=== PATIENT | female | born 1945 | race Caucasian/White ===

== ENCOUNTER 2017-11-12 08:27 | Day surgery (SDC) | payer MEDICARE ==
[2017-11-10 11:05] VITALS: BMI 21.0
[~2017-11-12 08:27] MED LIST: LACTATED RINGERS 1,000 ML IV SCH; LIDOCAINE 1% 20 ML VIAL (10MG/ML) FOR IV START INTRADERMA PRN
[2017-11-12 09:38] VITALS: RESP 16; TEMP 97
[2017-11-12] MEDS ORDERED: PROPOFOL 10 MG/ML 20 ML VIAL IV ONE (10:39)
--- NOTE | 2017-11-12 10:55 | P.PCN ---
Date of Procedure: 11/12/17 Procedure(s) Performed: BRIEF HISTORY: Patient is a 72-year-old pleasant white female, scheduled for an elective colonoscopy as a part of screening for colon neoplasia. She has family history of colon cancer diagnosed in her father at age 70. PROCEDURE PERFORMED: Colonoscopy. PREOPERATIVE DIAGNOSIS: Screening for colon cancer/family history of colon cancer. IV sedation per Anesthesia. PROCEDURE: After informed consent was obtained, the patient, was brought into the endoscopy unit. IV sedation was administered by Anesthesia under continuous monitoring. Digital rectal examination was normal. Initially the Olympus CF- 160 flexible video colonoscope was then inserted in the rectum, gradually advanced into the cecum without any difficulty. Careful examination was performed as the scope was gradually being withdrawn. Ileocecal valve and the appendiceal orifice were visualized and appeared normal. Prep was excellent. Mucosa of the cecum, ascending colon, transverse colon, descending colon, sigmoid colon, and rectum appeared normal. Scattered sigmoid diverticulosis seen. Retroflexion was performed in the rectum and no lesions were seen. The patient tolerated the procedure well. IMPRESSION: Normal-appearing colon from rectum to cecum with no evidence of colorectal neoplasia. Scattered sigmoid diverticulosis. RECOMMENDATIONS: Findings of this examination were discussed with the patient as well as her family. She was advised to have a repeat screening colonoscopy every 5 years because of the family history of colon cancer..
[2017-11-12 11:24] VITALS: BP 127/84; PULSE 67
== END 2017-11-12 11:34 | disposition home or self-care (01) ==
LOC: ORWHC2ENDO 08:27
PROVIDERS: ATTEND Internal Medicine Gastroenterology
DX: Z12.11 Encounter for screening for malignant neoplasm of colon (principal); K57.30 Diverticulosis of large intestine without perforation or abscess without bleeding; Z80.0 Family history of malignant neoplasm of digestive organs; K21.9 Gastro-esophageal reflux disease without esophagitis; Z79.899 Other long term (current) drug therapy
CPT/HCPCS: J2704; G0105

== ENCOUNTER → 2018-03-29 | Outpatient (CLI) | payer MEDICARE ==
[2018-03-29 14:39] LABS: Basophils % (A) 1 %; Eosinophils # (A) 0.1 k/uL (0-0.7); Eosinophils % (A) 1 %; HGB 13.6 gm/dL (11.4-16.0); Lymphocytes # (A) 1.6 k/uL (1.0-4.8); Lymphocytes % (A) 29 %; MCH 31.7 pg (25.0-35.0); MCHC 32.4 g/dL (31.0-37.0); MCV 97.9 fL (80.0-100.0); Mean Platelet Volume 7.1; Monocytes # (A) 0.3 k/uL (0-1.0); Monocytes % (A) 5 %; Neutrophils # (A) 3.5 k/uL (1.3-7.7); Neutrophils % (A) 63 %; Platelet Count 267 k/uL (150-450); RBC 4.29 m/uL (3.80-5.40); RDW 12.6 % (11.5-15.5); WBC 5.6 k/uL (3.8-10.6)
[2018-03-29 14:51] LABS: Anion Gap 8 mmol/L; Blood Urea Nitrogen 14 mg/dL (7-17); Carbon Dioxide 29 mmol/L (22-30); Chloride 104 mmol/L (98-107); Potassium 4.3 mmol/L (3.5-5.1); Sodium 141 mmol/L (137-145)
== END | disposition home or self-care (01) ==
LOC: LABPAT 13:52
PROVIDERS: ATTEND Obstetrics & Gynecology
DX: Z01.818 Encounter for other preprocedural examination (principal); Z01.812 Encounter for preprocedural laboratory examination; N81.4 Uterovaginal prolapse, unspecified
CPT/HCPCS: 36415; 80051; 82565; 84520; 85025; 87086; 93005

== ENCOUNTER 2018-04-05 05:40 | Day surgery (SDC) | payer MEDICARE ==
[2018-03-29 11:47] VITALS: BMI 21.0
[~2018-04-05 05:40] MED LIST changes: -LACTATED RINGERS 1,000 ML IV SCH; -LIDOCAINE 1% 20 ML VIAL (10MG/ML) FOR IV START INTRADERMA PRN; +ceFAZolin IN SWFI 2 GM/20 ML SYRINGE IVP ONE
[2018-04-05] MEDS ORDERED: HYDROmorphone 0.5 MG/0.5 ML SYRINGE IVP PRN (06:17)
[2018-04-05] MEDS ORDERED: DEXAMETHASONE SOD PHOSPHATE 10 MG/ML 1 ML VIAL IV ONE (06:17)
[2018-04-05] MEDS ORDERED: SCOPOLAMINE 1.5MG/72HR PATCH TRANSDERM ONE (06:17)
[2018-04-05] MEDS ORDERED: LIDOCAINE 1% 20 ML VIAL (10MG/ML) FOR IV START INTRADERMA PRN (06:17)
[2018-04-05] MEDS ORDERED: ONDANSETRON 4 MG/2 ML VIAL IVP ONE (06:17)
[2018-04-05] MEDS: LACTATED RINGERS 1,000 ML IV SCH ×2 (06:36→17:04)
[2018-04-05] MEDS ORDERED: MIDAZOLAM 2 MG/2 ML VIAL IV ONE (06:52)
[2018-04-05] MEDS ORDERED: PROPOFOL 10 MG/ML 20 ML VIAL IV ONE (07:25)
[2018-04-05] MEDS ORDERED: ePHEDrine SULFATE/0.9% NACL/PF 50 MG/5 ML SYRINGE IV ONE (07:25)
[2018-04-05] MEDS ORDERED: LIDOCAINE 1% INJ 10MG/ML (20 ML MDV) ONE (07:25)
[2018-04-05] MEDS ORDERED: MIDAZOLAM 2 MG/2 ML VIAL ONE (07:25)
[2018-04-05] MEDS ORDERED: MORPHINE SULFATE (PF) 0.3 MG/0.3 ML SYR ONE (07:25)
[2018-04-05] MEDS ORDERED: VASOPRESSIN 20 UNIT/ML 1 ML VIAL SQ ONE ×2 (07:45)
[2018-04-05] MEDS ORDERED: LACTATED RINGERS 1,000 ML IV ONE (08:26)
[2018-04-05] MEDS ORDERED: KETOROLAC 30 MG/ML 1 ML VIAL IVP PRN (08:34)
[2018-04-05] MEDS ORDERED: ONDANSETRON 4 MG/2 ML VIAL IVP PRN (08:34)
[2018-04-05] MEDS ORDERED: ZOLPIDEM 5 MG TAB PO PRN (08:34)
[2018-04-05] MEDS ORDERED: METOCLOPRAMIDE 5 MG/ML 2 ML VIAL IVP PRN (08:34)
[2018-04-05] MEDS ORDERED: IBUPROFEN 600 MG TAB PO PRN (08:34)
[2018-04-05] MEDS ORDERED: Acetaminophen-Codeine 300-30mg TAB PO PRN (08:34)
--- NOTE | 2018-04-05 08:34 | P.OP ---
Date of Procedure: 04/05/18 Preoperative Diagnosis: Grade 3 uterine prolapse, grade 3-4 cystocele, symptomatic Postoperative Diagnosis: Same, normal-appearing ovaries bilaterally Procedure(s) Performed: Vaginal hysterectomy, anterior colporrhaphy Anesthesia: spinal Surgeon: Chloe Blankenship [employer] Processor #1: Cassandra Yi Estimated Blood Loss (ml): 50 IV fluids (ml): 850 Urine output (ml): 150 Pathology: other (Cervix and uterus) Condition: stable Disposition: PACU Operative Findings: Normal-appearing ovaries bilaterally Description of Procedure: Patient is brought to the operating suite where a spinal with Duramorph is administered without difficulty. She's placed in the dorsal lithotomy position. Antibiotics are given. The appropriate timeout is performed to assure proper patient and procedural identification. Perineal body, cervix and vagina are all prepped and draped in usual sterile fashion. Analgesia is excellent. Bladder is drained for approximately 150 mL of clear yellow urine. Weighted speculum was placed into the vagina. Anterior lip of the cervix is grasped with a double-tooth tenaculum. Cervix is injected circumferentially with a dilute Pitressin solution. A capitan grande band blade scalpel is used and the mucosa is incised circumferentially with a V position at 6:00. Sponge rolled finger is used to sweep the mucosa from the underlying fascial plane. Peritoneum is entered at 6:00, suture tied with 2-0 Vicryl. This is held with a hemostat. Large billed speculum is then placed into the peritoneal cavity. At all times the bladder swept well from the operative field to avoid bladder and/or ureteral injury. Jodi clamps are used in the uterosacral cardinal ligaments are identified, clamped, cut, held with 0 Vicryl suture to the sides. Uterine vasculature is identified, clamped cut and suture ligated. 2 additional pedicles are taken superior to the vessels. Anterior peritoneum was entered at 12:00. The uterus is "walked out" posteriorly. Jodi clamps are used across the final pedicles, these are cut, tied with 0 Vicryl, flashed, and retied for excellent hemostasis. Sponge stick is used in the ovaries are visualized and noted to be within normal limits to inspection. They are therefore left in situ. All pedicles are clean and dry. Speculum was now replaced the shallow weighted speculum. 2-0 Vicryl suture is brought around in a pursestring fashion to close the mucosa. This is tied and cut. The previously placed uterosacral cardinal ligament complex these are now brought across to incorporate the opposite complex as well as vaginal mucosa to close the vaginal cuff. 2 additional evvvwn-oz-zvhgx sutures of 0 Vicryl are placed inferior to this. The anterior mucosa is now grasped with Allis clamps. The cystocele repair is started. The mucosa anteriorly is injected with the same dilute Pitressin solution. It is opened with Metzenbaum scissors to approximately 1.5 cm inferior to the urethra. The tissue is held in a fanlike fashion with Allis clamps and the dissection is completed with a sponge, sweeping the underlying fascia from the overlying mucosa. The Moody catheter is placed and urine is noted to be clear. The bladder is drained. 2-0 Vicryl sutures used to bring the fascial edges together in the midline thereby reducing the defect. The mucosa is trimmed with Metzenbaum scissors. 2-0 Vicryl is used in a running locking stitch to close the anterior repair. Moody again is noted to be draining clear urine. The vagina is packed with one-inch iodophor gauze with basic tracing. All sponge needle and enhancement counts are correct. Total estimated blood loss 50 mL's. The patient is brought back to recovery room in very good condition with stable vital signs including blood pressure 106 /62, pulse 82, 96% O2 saturation.
[2018-04-05] MEDS: diphenhydrAMINE 50 MG/ML 1 ML VIAL IVP PRN ×2 (12:08→17:05)
--- NOTE | 2018-04-06 07:45 | P.DS ---
Providers Expected date of discharge: 04/06/18 Attending physician: Chloe Blankenship Primary care physician: [place] Hospital Course: This is a 72-year-old white female who presented with an increasingly symptomatic cystocele and uterine prolapse. After thorough consultation in the office we elected to proceed with surgery. Please see my dictated history and physical for details. Patient was admitted and underwent a vaginal hysterectomy and cystocele repair yesterday under my care. She did very well intraoperatively. The ovaries appeared normal bilaterally and therefore were left in situ per her wishes. The vagina was packed with iodoform gauzes, Moody catheter placed. Please see dictated operative note for details. This morning the vaginal packing and Moody catheter had been removed. Patient is passing flatus. Her diet is being advanced. There is no vaginal bleeding. Extremities are negative. Chest is clear. Voiding has not yet occurred spontaneously, however we will measure the void in the post void residual and if it is less than 100 patient will be discharged home later today. She is judged to be in very good condition for discharge home. She will follow- up with me in the office in 2 weeks. I have reminded her no intercourse, tampons or douching. She will use ijzf-rua-snkjksx Advil or Aleve as needed for pain. No heavy lifting. No heavy housework. She will call me with any fevers shakes or chills, foul smelling or bloody vaginal drainage, with any pain not alleviated by tygq-eqo-vvfulju products. She will call with any issues with voiding or bowel movements. I've asked her to call me with any concerns or complaints. She will resume her home medications at this time. Patient Condition at Discharge: Good Plan - Discharge Summary Discharge Rx Participant: No New Discharge Prescriptions: No Action Omeprazole 20 mg PO DAILY Loratadine [Claritin] 10 mg PO DAILY Magnesium 200 mg PO DAILY Glucosam/Dmitry-Msm1/C/Rene/Bosw [Glucosamine-Chondroitin Tablet] 1 each PO DAILY Lutein 6 mg PO DAILY Calcium Carbonate/Vitamin D3 [Calcium 600-Vit D3 200 Tablet] 1 each PO DAILY Cholecalciferol [Vitamin D3] 1,000 mg PO DAILY Discharge Medication List Loratadine [Claritin] 10 mg PO DAILY 02/26/14 [History] Omeprazole 20 mg PO DAILY 02/26/14 [History] Calcium Carbonate/Vitamin D3 [Calcium 600-Vit D3 200 Tablet] 1 each PO DAILY [History] Glucosam/Dmitry-Msm1/C/Rene/Bosw [Glucosamine-Chondroitin Tablet] 1 each PO DAILY 11/10/17 [History] Lutein 6 mg PO DAILY 11/10/17 [History] Magnesium 200 mg PO DAILY 11/10/17 [History] Cholecalciferol [Vitamin D3] 1,000 mg PO DAILY 03/29/18 [History] Follow up Appointment(s)/Referral(s): Chloe Blankenship MD [STAFF PHYSICIAN] - 2 Weeks Discharge Disposition: HOME SELF-CARE
[2018-04-06 09:55] VITALS: BP 100/62; PULSE 76; RESP 16; TEMP 98.1
--- NOTE | 2018-04-06 11:50 | P.PN ---
Progress Note - Text Anesthesia POD 1. Patient is status post Vaginal hysterectomy and anterior colporrhaphy under spinal anesthesia with intra-thecal preservative free morphine 300 g. Mild pruritus, excellent post-op analgesia, and no headache or other complication.
== END 2018-04-06 11:20 | disposition home or self-care (01) ==
LOC: OR 05:40 → 6PED 08:36 → OR 04-06 11:20
PROVIDERS: ATTEND Obstetrics & Gynecology
DX: N80.0 Endometriosis of uterus (principal); N81.4 Uterovaginal prolapse, unspecified; K21.9 Gastro-esophageal reflux disease without esophagitis; Z79.899 Other long term (current) drug therapy
CPT/HCPCS: 88307; 57240; 58260; J2250; J1200; J1100; J2405; J0690; 86850; 86900; 86901; 88305

== ENCOUNTER → 2020-12-30 | Outpatient (CLI) | payer MEDICARE ==
--- NOTE | 2020-12-30 08:52 | BD ---
EXAMINATION TYPE: Axial Bone Density DATE OF EXAM: 12/30/2020 COMPARISON: NONE CLINICAL HISTORY: 75 YR OLD FEMALE....ICD-10 CODE: M89.9 DISORDER OF BONE Height: 61 Weight: 109 FRAX RISK QUESTIONS: History of Fracture in Adulthood: YES RISK FACTORS HISTORY OF: History of Wrist Fracture: HX OF LEFT FOREARM AND ELBOW FX AN ADULT Postmenopausal woman: YES, AT ABOUT AGE 48 YRS OLD Take estrogen and/or progesterone medications: YES, IN THE PAST FOR ABOUT 3 YRS Hyperparathyroidism: NO Adrenal Insufficiency: NO MEDICATIONS: Additional Medications: REFLUX MEDS, VIT D AND CALCIUM Additional History: REFLUX, EARLY MENOPAUSE EXAM MEASUREMENTS: Bone mineral densitometry was performed using the [employer]. Bone mineral density as measured about the Lumbar spine is: ----- L1-L4(G/cm2): 1.017 T Score Values are as follows: ----- L1: -2.0 ----- L2: -1.5 ----- L3: -1.4 ----- L4: -0.8 ----- L1-L4: -1.4 Bone mineral density FIRST DEXA SCAN AT [facility] Bone mineral density about the R hip (g/cm2): 0.783 Bone mineral density about the L hip (g/cm2): 0.813 T Score values are as follows: -----R Neck: -0.9 -----L Neck: -0.9 -----R Total: -1.8 -----L Total: -1.5 Bone mineral density FIRST BONE DENSITY STUDY AT [facility] FRAX%s: THERE IS A 12.9% CHANCE FOR A MAJOR OSTEOPOROTIC FX AND A 1.8% FOR HIP......PROBABILITY FO R FX IN 10 YRS TIME IMPRESSION: Osteopenia. NOTE: T-SCORE=SD OF THE YOUNG ADULT MEAN.
== END | disposition home or self-care (01) ==
LOC: RADBDWWP 06:54
PROVIDERS: ATTEND Family Medicine
DX: M85.89 Other specified disorders of bone density and structure, multiple sites (principal)
CPT/HCPCS: 77080

== ENCOUNTER → 2022-12-11 | Day surgery (SDC) | payer MEDICARE ==
[2022-12-09 09:10] VITALS: BMI 21.0
[~2022-12-11] MED LIST changes: +LACTATED RINGERS 1,000 ML IV SCH; +LIDOCAINE 2% INJ 20 MG/ML (2 ML VIAL) ONE; +PROPOFOL 10 MG/ML 20 ML VIAL IV ONE; -ceFAZolin IN SWFI 2 GM/20 ML SYRINGE IVP ONE
[2022-12-11 07:02] VITALS: RESP 16; TEMP 97.7
--- NOTE | 2022-12-11 07:51 | P.PCN ---
Date of Procedure: 12/11/22 Procedure(s) Performed: Brief history: Patient is a pleasant 77-year-old white female scheduled for an elective upper endoscopy as well as colonoscopy as a part of evaluation of GERD/intermittent dysphagia to solids and screening for colon cancer. Her father was diagnosed with colon cancer at age 70. Patient states that she had esophageal surgery 6 years ago but cannot recall the details. This was done at [facility] Procedure performed: Esophagogastroduodenoscopy with biopsy Colonoscopy Preoperative diagnosis: GERD intermittent dysphagia to solids Screening for colon cancer and family history of colon cancer Anesthesia: MAC Procedure: After informed consent was obtained from the patient was brought into the endoscopy unit and IV sedation was administered by anesthesia under continuous monitoring. Initially upper endoscopy was done. The Olympus GF 160 video endoscope was inserted inserted into the mouth and esophagus intubated without any difficulty and was gradually advanced into the stomach and duodenum and carefully examined. The bulb and second part of the duodenum appeared normal. The scope was then withdrawn into the stomach adequately insufflated with air and upon careful examination the antrum and body, cardia and fundus appeared normal. Multiple small gastric polyps noted in the gastric body which were biopsied. The scope was then withdrawn into the esophagus. Small hiatal hernia noted. The GE junction was located at 38 cm to the incisors. It appeared regular with no erythema erosions or ulcerations. There is status post noted from previous esophageal surgery in the distal esophagus. Rest of the esophagus appeared normal. Patient tolerated the procedure well. At this time the patient continued to remain sedation. Initial digital rectal examination was normal. Olympus CF 160 video colonoscope was then inserted into the rectum and gradually advanced to the cecum without any difficulty. Careful examination was performed as the scope was gradually being withdrawn. The prep was excellent. The cecum, ascending colon, transverse colon, descending colon, sigmoid colon and rectum appeared normal. Scattered diffuse diverticulosis. Retroflexion was performed in the rectum and no lesions were noted. Patient tolerated the procedure well. Impression: 1. Upper endoscopy revealed multiple small gastric polyps, small hiatal hernia but no evidence of esophageal stricture or esophageal 2. Colonoscopy revealed scattered sigmoid diverticulosis but no evidence of colorectal neoplasia Recommendations: Findings of this examination were discussed with the patient as well as a family. She was advised to follow with the biopsy results. Continue with omeprazole 20 mg daily. Repeat colonoscopy in 5 years because of the family history of colon cancer
[2022-12-11 08:15] VITALS: BP 120/71; PULSE 62
== END ==
LOC: ORWHC2ENDO 06:23
PROVIDERS: ATTEND Internal Medicine Gastroenterology
DX: Z12.11 Encounter for screening for malignant neoplasm of colon (principal); K57.30 Diverticulosis of large intestine without perforation or abscess without bleeding; Z80.0 Family history of malignant neoplasm of digestive organs; K31.7 Polyp of stomach and duodenum; K21.00 Gastro-esophageal reflux disease with esophagitis, without bleeding; K44.9 Diaphragmatic hernia without obstruction or gangrene; Z79.899 Other long term (current) drug therapy
CPT/HCPCS: 88305; 43239; J2704; J2001; G0121

== ENCOUNTER → 2023-03-02 | Outpatient (CLI) | payer MEDICARE ==
--- NOTE | 2023-03-03 23:48 | MR ---
EXAMINATION TYPE: MR knee RT wo con DATE OF EXAM: 03/02/2023 COMPARISON: NONE HISTORY: Right knee pain and swelling increasing in severity over the last month TECHNIQUE: Multiplanar, multisequence images of the knee is performed without IV contrast. FINDINGS: MEDIAL MENISCUS: Truncated appearance posterior horn with abnormal signal having a horizontal and obl ique component extending to inferior articular surface sagittal image 9. LATERAL MENISCUS: Anterior and posterior horns are intact without tear. CRUCIATE LIGAMENTS: The anterior and posterior cruciate ligaments are intact and unremarkable. COLLATERAL LIGAMENTS: The medial collateral ligament and lateral collateral ligament complex are inta ct and unremarkable. EXTENSOR MECHANISM: Visualized quadriceps and patellar tendons are intact. Prominent spurring tear agrawal perior patella. EFFUSION: Small to moderate size suprapatellar joint effusion. POPLITEAL CYST: Moderate sized leaking popliteal/argueta cyst. TRICOMPARTMENT SPACES: Cxaq-el-fevzuhar tricompartmental joint space loss. Moderate spurring medial a nd lateral tibiofemoral compartments. Mild spurring patellofemoral compartment. CARTILAGE: Cartilaginous loss medial tibial femoral compartment. 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 BONE MARROW SIGNAL: Focus of increased T2 signal anterior aspect of the medial tibial plateau coronal image 13 for reference. Some areas of increased T2 signal along the posterior aspect of the patella greatest laterally. OTHER: No additional significant abnormality is appreciated. IMPRESSION: 1. Complex full-thickness tear posterior horn medial meniscus. 2. At least moderate tricompartment degenerative changes as detailed above. 3. Small to moderate size patellar joint effusion. 4. Moderate-size leaking popliteal cyst.
== END | disposition home or self-care (01) ==
LOC: RADMRIMAIN 21:15
PROVIDERS: ATTEND Orthopaedic Surgery
DX: M17.0 Bilateral primary osteoarthritis of knee (principal); M16.11 Unilateral primary osteoarthritis, right hip; M51.36 Other intervertebral disc degeneration, lumbar region; M23.91 Unspecified internal derangement of right knee; S83.241A Other tear of medial meniscus, current injury, right knee, initial encounter; M71.21 Synovial cyst of popliteal space [Baker], right knee; M25.461 Effusion, right knee; X58.XXXA Exposure to other specified factors, initial encounter